=== PATIENT | female | born 1985 | race Caucasian/White ===

== ENCOUNTER → 2017-01-29 | Outpatient (CLI) | payer BC ==
[~2017-01-29] VITALS: Ht 156.2 cm; Wt 104.3 kg
[~2017-01-29] MED LIST: ATARAX,VISTARIL25 MG PO; ENSKYCE1 EACH PO; GLUCOPHAGE500 MG PO; LEXAPRO20 MG PO; SYNTHROID50 MCG PO; TOPAMAX25 MG PO
[2017-01-29 11:58] LABS: POINT-OF-CARE METER ID UU13113694
[2017-01-29 12:17] LABS: ANION GAP 9 MEQ/L (2-14); CHLORIDE 107 MEQ/L (99-109); POTASSIUM 4.1 MEQ/L (3.7-5.4); SAMPLE HEMOLYSIS CHECK 0; SAMPLE ICTERIC CHECK 0; SAMPLE LIPEMIA CHECK 0; SODIUM 137 MEQ/L (136-147)
[2017-01-29 12:23] LABS: GFR ESTIMATE (CALCULATED) > 59 mL/min/; GLUCOSE 90 mg/dL (70-99); UREA NITROGEN (BUN) 10 mg/dL (9-23)
== END | disposition home or self-care (01) ==
LOC: AMB 11:03
PROVIDERS: Surgery
PROC: 0DJ08ZZ Inspection of Upper Intestinal Tract, Via Natural or Artificial Opening Endoscopic (ICD-10-PCS; principal; 2017-01-29)
DX: K29.70 Gastritis, unspecified, without bleeding (principal); K21.9 Gastro-esophageal reflux disease without esophagitis; E66.01 Morbid (severe) obesity due to excess calories; Z68.41 Body mass index [BMI] 40.0-44.9, adult; E28.2 Polycystic ovarian syndrome; E03.9 Hypothyroidism, unspecified; R73.03 Prediabetes; Z88.2 Allergy status to sulfonamides; Z88.8 Allergy status to other drugs, medicaments and biological substances
CPT/HCPCS: 80048; 82948; J2405

== ENCOUNTER 2017-02-27 05:17 | Inpatient (IN) | payer BC ==
[~2017-02-27] VITALS: Ht 154.9 cm; Wt 112.6 kg
[2017-02-27 06:28] LABS: POINT-OF-CARE METER ID UU13113694
[2017-02-27 07:10] VITALS: BP 115/79
[2017-02-27 09:02] LABS: POINT-OF-CARE METER ID UU13113675
[2017-02-27 11:20] LABS: POINT-OF-CARE METER ID UU14208750
[2017-02-27 11:47] VITALS: BP 145/92
[2017-02-27 15:54] VITALS: BP 115/64
[2017-02-27 17:40] LABS: POINT-OF-CARE METER ID UU14208750
[2017-02-27 19:32] VITALS: BP 121/62
[2017-02-27 22:56] VITALS: BP 114/61
[2017-02-28 00:21] LABS: POINT-OF-CARE METER ID UU14208750
[2017-02-28 03:53] VITALS: BP 112/60
[2017-02-28 07:40] LABS: HEMATOCRIT 39.6 % (36.0-46.0); MCHC 31.8 G/DL (30.0-36.0); MEAN PLAT.VOLUME 9.1 uM^3 (9.5-12.4); PLATELET COUNT 301 K/uL (156-360); RBC DIS.WIDTH-CV 12.3 % (11.8-14.6); RED BLOOD COUNT 4.66 M/uL (3.80-5.20); WHITE BLOOD COUNT 14.2 K/uL (4.1-10.2)
[2017-02-28 07:59] LABS: ANION GAP 7 MEQ/L (2-14); CHLORIDE 105 MEQ/L (99-109); GFR ESTIMATE (CALCULATED) > 59 mL/min/; GLUCOSE 106 mg/dL (70-99); MAGNESIUM 1.8 mg/dl (1.3-2.7); POTASSIUM 4.1 MEQ/L (3.7-5.4); SAMPLE HEMOLYSIS CHECK 0; SAMPLE ICTERIC CHECK 0; SAMPLE LIPEMIA CHECK 0; SODIUM 140 MEQ/L (136-147); UREA NITROGEN (BUN) 9 mg/dL (9-23)
[2017-02-28 08:00] VITALS: BP 126/76
[2017-02-28] MEDS ORDERED: HYDROCODON-ACE1 EAC7 PO (08:53)
[2017-02-28 11:30] VITALS: BP 115/68
[2017-02-28 15:15] VITALS: BP 131/75
[2017-02-28 21:03] VITALS: BP 116/71
[2017-02-28 23:48] VITALS: BP 131/78
[2017-03-01 03:44] VITALS: BP 105/57
[2017-03-01 06:44] LABS: HEMATOCRIT 36.8 % (36.0-46.0); MCH 28.7 PG (29.0-34.0); MCHC 32.9 G/DL (30.0-36.0); MCV 87.2 FL (83-99); MEAN PLAT.VOLUME 8.9 uM^3 (9.5-12.4); PLATELET COUNT 258 K/uL (156-360); RBC DIS.WIDTH-CV 12.9 % (11.8-14.6); RBC DIS.WIDTH-SD 40.4 % (39-53); RED BLOOD COUNT 4.22 M/uL (3.80-5.20); WHITE BLOOD COUNT 10.3 K/uL (4.1-10.2)
[2017-03-01 07:11] LABS: ANION GAP 6 MEQ/L (2-14); CHLORIDE 105 MEQ/L (99-109); GFR ESTIMATE (CALCULATED) > 59 mL/min/; GLUCOSE 85 mg/dL (70-99); MAGNESIUM 1.9 mg/dl (1.3-2.7); POTASSIUM 4.2 MEQ/L (3.7-5.4); SAMPLE HEMOLYSIS CHECK 0; SAMPLE ICTERIC CHECK 0; SAMPLE LIPEMIA CHECK 0; SODIUM 140 MEQ/L (136-147); UREA NITROGEN (BUN) 7 mg/dL (9-23)
[2017-03-01 07:30] VITALS: BP 124/68
[2017-03-01 12:03] LABS: POINT-OF-CARE USER ID PUTDRM
[2017-03-01 12:13] VITALS: BP 134/67
[2017-03-01 15:28] VITALS: BP 117/65
[2017-03-01 17:55] LABS: POINT-OF-CARE USER ID PUTDRM
[2017-03-01 18:25] LABS: POINT-OF-CARE USER ID PUTDRM
[2017-03-01 20:11] VITALS: BP 140/70
[2017-03-02 00:08] VITALS: BP 115/68
[2017-03-02 04:08] VITALS: BP 113/65
[2017-03-02 05:43] LABS: POINT-OF-CARE METER ID UU14208750
[2017-03-02 06:05] LABS: HEMATOCRIT 38.7 % (36.0-46.0); MCHC 31.8 G/DL (30.0-36.0); MCV 88.2 FL (83-99); MEAN PLAT.VOLUME 9.1 uM^3 (9.5-12.4); PLATELET COUNT 257 K/uL (156-360); RBC DIS.WIDTH-CV 12.7 % (11.8-14.6); RBC DIS.WIDTH-SD 40.8 % (39-53); RED BLOOD COUNT 4.39 M/uL (3.80-5.20)
[2017-03-02 06:32] LABS: ANION GAP 8 MEQ/L (2-14); CHLORIDE 105 MEQ/L (99-109); GFR ESTIMATE (CALCULATED) > 59 mL/min/; GLUCOSE 68 mg/dL (70-99); MAGNESIUM 1.9 mg/dl (1.3-2.7); POTASSIUM 4.2 MEQ/L (3.7-5.4); SAMPLE HEMOLYSIS CHECK 0; SAMPLE ICTERIC CHECK 0; SAMPLE LIPEMIA CHECK 0; SODIUM 140 MEQ/L (136-147); UREA NITROGEN (BUN) 6 mg/dL (9-23)
[2017-03-02 07:40] VITALS: BP 141/79
[2017-03-02 12:10] VITALS: BP 132/80
== END 2017-03-02 14:53 | disposition home or self-care (01) | DRG 621 ==
LOC: 2SOUTH 05:17 → 2EAST 10:21 → 2SOUTH 12:40 → 2EAST 03-02 14:53
PROVIDERS: Surgery
PROC: 0DB64Z3 Excision of Stomach, Percutaneous Endoscopic Approach, Vertical (ICD-10-PCS; principal; 2017-02-27)
DX: E66.01 Morbid (severe) obesity due to excess calories (principal); Z68.42 Body mass index [BMI] 45.0-49.9, adult; K21.9 Gastro-esophageal reflux disease without esophagitis; R73.03 Prediabetes; E05.90 Thyrotoxicosis, unspecified without thyrotoxic crisis or storm; K76.0 Fatty (change of) liver, not elsewhere classified; G43.909 Migraine, unspecified, not intractable, without status migrainosus; E28.2 Polycystic ovarian syndrome
CPT/HCPCS: 71020; 80048; 82948; 83735; 84100; 85027; 94799; C9113; J0131; J0330; J0690; J1100; J1170; J1644; J1650; J1815; J1885; J2250; J2270; J2405; J2710; J2765; J3480; J7120; S0020